=== PATIENT | female | born 1955 | race Two or more races ===

== ENCOUNTER → 2021-05-11 07:37 | Outpatient (CLI) | payer OTHER ==
[~2021-05-11 07:37] MED LIST: CARVEDILOL3.125 MG; CLARITIN10 M2 PO; COZAAR100 MG PO; GLUMETZA1000 MG PO; SINGULAIR10 MG PO; SYNTHROID50 MCG; [UNRECOGNIZED DRUG - REMARK]
== END | disposition home or self-care (01) ==
LOC: NUCLEAR 07:00
PROVIDERS: ATTEND Internal Medicine Cardiovascular Disease
DX: I25.10 Atherosclerotic heart disease of native coronary artery without angina pectoris (principal)
CPT/HCPCS: 78452; 93017; A9500; J0153

== ENCOUNTER 2021-05-17 14:06 | Emergency (ER) | payer OTHER ==
[~2021-05-17] VITALS: Ht 165.1 cm; Wt 106.6 kg
[~2021-05-17 14:06] MED LIST changes: -CARVEDILOL3.125 MG; -CLARITIN10 M2 PO; -COZAAR100 MG PO; -GLUMETZA1000 MG PO; -SINGULAIR10 MG PO; -SYNTHROID50 MCG
[2021-05-17] MEDS ORDERED: SYNTHROID50 MCG (14:38)
[2021-05-17] MEDS ORDERED: COZAAR100 MG PO (14:38)
[2021-05-17] MEDS ORDERED: CARVEDILOL3.125 MG (14:39)
[2021-05-17] MEDS ORDERED: CLARITIN10 M2 PO (14:39)
[2021-05-17] MEDS ORDERED: SINGULAIR10 MG PO (14:39)
[2021-05-17] MEDS ORDERED: GLUMETZA1000 MG PO (14:39)
== END 2021-05-17 18:13 | disposition home or self-care (01) ==
LOC: ER 14:06
DX: B34.9 Viral infection, unspecified (principal); J45.998 Other asthma; E11.9 Type 2 diabetes mellitus without complications; I10 Essential (primary) hypertension; Z20.822 Contact with and (suspected) exposure to COVID-19

== ENCOUNTER 2021-09-02 17:49 | Emergency (ER) | payer OTHER ==
[~2021-09-02] VITALS: Ht 165.1 cm; Wt 108.9 kg
[~2021-09-02 17:49] MED LIST changes: +CARVEDILOL3.125 MG; +CLARITIN10 M2 PO; +COZAAR100 MG PO; +GLUMETZA1000 MG PO; +SINGULAIR10 MG PO; +SYNTHROID50 MCG
[2021-09-02] MEDS ORDERED: CARVEDILOL6.25 MG (18:00)
[2021-09-02] MEDS ORDERED: GLIMEPIRIDE4 MG (18:00)
[2021-09-02] MEDS ORDERED: SINUS RINSE ST1 EACH NASAL (22:15)
[2021-09-02] MEDS ORDERED: FLONASE ALLERG9.9 ML NASAL (22:15)
== END 2021-09-02 22:30 | disposition home or self-care (01) ==
LOC: ER 17:49
DX: R51.9 Headache, unspecified (principal); Z20.822 Contact with and (suspected) exposure to COVID-19